=== PATIENT | male | born 1995 ===

== ENCOUNTER 2018-11-10 16:00 | Emergency (ER) | payer MEDICARE, BC ==
[2018-11-10 16:27] VITALS: BMI 28.1
[2018-11-10 16:34] VITALS: BP 146/77; PULSE 74; RESP 17; TEMP 98.1; O2SAT 100
--- NOTE | 2018-11-10 17:11 | C.PDOC ---
History Of Present Illness 22 year old male brought to ED by mother for psychiatric evaluation. Patient's mother states that he gets very nervous and that he became very angry and started to yell. Patient's mother states that she started to throw the hair brush around and wouldn't calm down. Patient is non-compliant with his Prozac and takes clonazepam. Patient states that he doesn't take his Prozac because it doesn't work. Patient states that he got upset because his mother wouldn't buy him something. Patient's mother states they have no therapy/counseling services anymore and were told to apply to [facility] through their insurance. Patient denies suicidal ideation, hallucination, and homicidal ideation. Time Seen by Provider: 11/10/18 16:37 Chief Complaint (Nursing): Psychiatric Evaluation History Per: Patient, Family (mother) History/Exam Limitations: no limitations Onset/Duration Of Symptoms: Other (mother escorted for pyschiatric evaluation) Suicide/Self Injury Attempted (Context): None Modifying Factor(s): None Severity: None Associated Symptoms: denies: Suicidal Thoughts, Suicidal Plan, Other (homicidal ideation) Past Medical History Reviewed: Historical Data, Nursing Documentation, Vital Signs Vital Signs: Last Vital Signs Temp 98.1 F 11/10/18 16:28 Pulse 74 11/10/18 16:28 Resp 17 11/10/18 16:28 BP 146/77 11/10/18 16:28 Pulse Ox 100 11/10/18 16:28 - Medical History PMH: Anxiety, Depression Surgical History: No Surg Hx Family History: States: Unknown Family Hx - Social History Hx Alcohol Use: No Hx Substance Use: No - Immunization History Hx Tetanus Toxoid Vaccination: No Hx Influenza Vaccination: No Hx Pneumococcal Vaccination: No Review Of Systems Constitutional: Negative for: Fever, Chills, Weakness Neurological: Negative for: Weakness, Numbness, Dizziness Psych: Negative for: Suicidal ideation, Other (homicidal ideation) Physical Exam - Physical Exam Appears: Well, Non-toxic, No Acute Distress, Other (playful, interacting) Skin: Normal Color, Warm, Dry Head: Atraumatic, Normacephalic Neck: Normal ROM, Supple Chest: Symmetrical, No Deformity Cardiovascular: Rhythm Regular, No Murmur Respiratory: No Accessory Muscle Use, No Rales, No Rhonchi, No Wheezing Gastrointestinal/Abdominal: Soft, No Tenderness Extremity: Capillary Refill (<2 seconds) Neurological/Psych: Oriented x3, Normal Speech, Normal Cognition ED Course And Treatment O2 Sat by Pulse Oximetry: 100 (in RA) Medical Decision Making Medical Decision Making: Curbside Dalila from crisis to assess whether this is a case for crisis. Dalila reports that because he is developmentally delayed that she recommends that he seek further evaluation at [facility] crisis intervention services since his issues are more so behavioral than suicidal in nature nor does he admit to having any hallucinations. 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 (Judy Roy) - Scribe Statement The provider has reviewed the documentation as recorded by the Scribe (Judy Roy) All medical record entries made by the Scribe were at my direction and personally dictated by me. I have reviewed the chart and agree that the record accurately reflects my personal performance of the history, physical exam, medical decision making, and the department course for this patient. I have also personally directed, reviewed, and agree with the discharge instructions and disposition.
--- NOTE | 2018-11-10 17:14 | C.PDOC ---
Time Seen by Provider: 11/10/18 16:37 Chief Complaint (Nursing): Psychiatric Evaluation Past Medical History Vital Signs: Last Vital Signs Temp 98.1 F 11/10/18 16:28 Pulse 74 11/10/18 16:28 Resp 17 11/10/18 16:28 BP 146/77 11/10/18 16:28 Pulse Ox 100 11/10/18 16:28 - Medical History PMH: Anxiety, Depression - Social History Hx Alcohol Use: No Hx Substance Use: No - Immunization History Hx Tetanus Toxoid Vaccination: No Hx Influenza Vaccination: No Hx Pneumococcal Vaccination: No ED Course And Treatment O2 Sat by Pulse Oximetry: 100 Disposition Counseled Patient/Family Regarding: Diagnosis, Need For Followup - Disposition Referrals: [facility] [Outside] Disposition: HOME/ ROUTINE Disposition Time: 17:11 Condition: STABLE Additional Instructions: Please see [facility] today for further evaluation as requested by Crisis Return to ED if symptoms worsen Instructions: Tips on Helping Change Behavior Forms: [employer] Connect (Kosovan) Print Language: CHADIAN - Clinical Impression Clinical Impression: History of developmental delay, Behavioral disorder
== END 2018-11-10 17:19 | disposition home or self-care (01) ==
LOC: C.ER 16:00
DX: F91.9 Conduct disorder, unspecified (principal); Z87.898 Personal history of other specified conditions